=== PATIENT | female | born 1940 | race Caucasian/White ===

== ENCOUNTER 2025-03-23 12:30 | Outpatient (RCR) | payer OTHER, SELFPAY | END 2025-03-23 16:09 | disposition home or self-care (01) | LOC: HO.WCC 12:30 | PROVIDERS: Visit Provider Surgery Surgical Oncology | DX: L89.629 Pressure ulcer of left heel, unspecified stage (principal); I87.2 Venous insufficiency (chronic) (peripheral); I50.22 Chronic systolic (congestive) heart failure; I48.20 Chronic atrial fibrillation, unspecified; Z87.891 Personal history of nicotine dependence; G62.9 Polyneuropathy, unspecified; I73.9 Peripheral vascular disease, unspecified | CPT/HCPCS: 97597; 99203; 99212 ==